=== PATIENT | female | born 1990 | race Caucasian/White ===

== ENCOUNTER → 2020-08-07 11:24 | Outpatient (REF) | payer OTHER, SELFPAY | LOC: ANHLAB 11:24 | PROVIDERS: PCP Registered Nurse; Visit Provider Nurse Practitioner | DX: D49.2 Neoplasm of unspecified behavior of bone, soft tissue, and skin (principal) | CPT/HCPCS: 88305; 88342 ==

== ENCOUNTER → 2020-08-25 | Outpatient (REF) | payer OTHER, SELFPAY | END | disposition home or self-care (01) | LOC: ANHLAB 15:49 | PROVIDERS: PCP Registered Nurse; Visit Provider Nurse Practitioner | DX: C43.59 Malignant melanoma of other part of trunk (principal) | CPT/HCPCS: 88305; 88342 ==

== ENCOUNTER → 2021-02-03 15:52 | Outpatient (REF) | payer OTHER, SELFPAY | LOC: ANHLAB 15:52 | PROVIDERS: PCP Registered Nurse; Visit Provider Nurse Practitioner | DX: C44.309 Unspecified malignant neoplasm of skin of other parts of face (principal) | CPT/HCPCS: 88305; 88342 ==

== ENCOUNTER → 2021-03-02 08:42 | Outpatient (REF) | payer OTHER, SELFPAY | LOC: ANHLAB 08:42 | PROVIDERS: PCP Registered Nurse; Visit Provider Nurse Practitioner | DX: C44.319 Basal cell carcinoma of skin of other parts of face (principal) | CPT/HCPCS: 88305; 88331 ==